=== PATIENT | female | born 1965 | race American Indian/Alaskan Native ===

== ENCOUNTER 2018-06-09 15:28 | Emergency (ER) | payer MEDICAID ==
[2018-06-09 16:15] VITALS: BP 144/70
[2018-06-09] MEDS ORDERED: NACL 0.9% 1000 ML 1,000 ML IV ONE (16:37)
[2018-06-09] MEDS ORDERED: ZOFRAN IV ONE (16:37)
--- NOTE | 2018-06-09 16:38 | Emergency Department Report ---
ED N/V/D HPI - General Chief complaint: Weakness Stated complaint: DONT FEEL GOOD Time Seen by Provider: 06/09/18 16:11 Source: patient Mode of arrival: Wheelchair Limitations: No Limitations - History of Present Illness Initial comments: 52-year-old female presents to the ED with complaints of weakness secondary to nausea, vomiting, diarrhea since last night. Patient denies abdominal pain. Reports subjective fever and chills. Patient denies sick contacts. Denies chest pain. Patient states she was seen at [facility] for same complaint one month ago. States she was diagnosed with "yeast in my stomach." Patient also reports rash possibly due to bed bugs from hotel room that she is currently staying in. Also reports right hip and knee pain which is chronic in nature due to fall several months ago. PCP: Bebeto MENCHACA complaint: nausea, vomiting, diarrhea -: Last night Description of Vomiting: food contents Description of Diarrhea: water Associated Abdominal Pain: No Severity: moderate Consistency: intermittent Improves with: none Worsens with: eating Associated Symptoms: nausea/vomiting, rash, weakness. denies: chest pain, cough , headaches - Related Data Previous Rx's Medication Instructions Recorded Last Taken Type Nitrofurantoin Monohyd/M-Cryst 100 mg PO BID #14 capsule 06/09/18 Unknown Rx [Macrobid 100 mg Capsule] Promethazine [Phenergan TAB] 25 mg PO Q6HR PRN #20 tab 06/09/18 Unknown Rx Promethazine [Phenergan TAB] 25 mg PO Q6HR PRN #20 tab 06/09/18 Unknown Rx Allergies Allergy/AdvReac Type Severity Reaction Status Date / Time Penicillins Allergy Hives Verified 06/09/18 15:35 ED Review of Systems ROS: Stated complaint: DONT FEEL GOOD Other details as noted in HPI Comment: All other systems reviewed and negative Constitutional: chills, fever, weakness Cardiovascular: denies: chest pain Gastrointestinal: nausea, vomiting, diarrhea. denies: abdominal pain Skin: rash Neurological: denies: headache ED Past Medical Hx - Past Medical History Previous Medical History?: Yes Hx Hypertension: Yes Hx Heart Attack/AMI: Yes Hx Congestive Heart Failure: Yes Hx Asthma: Yes Hx HIV: Yes - Surgical History Additional Surgical History: Cataract - Social History Smoking Status: Never Smoker Substance Use Type: Alcohol - Medications Home Medications: Home Medications Medication Instructions Recorded Confirmed Last Taken Type Nitrofurantoin Monohyd/M-Cryst 100 mg PO BID #14 capsule 06/09/18 Unknown Rx [Macrobid 100 mg Capsule] Promethazine [Phenergan TAB] 25 mg PO Q6HR PRN #20 tab 06/09/18 Unknown Rx Promethazine [Phenergan TAB] 25 mg PO Q6HR PRN #20 tab 06/09/18 Unknown Rx ED Physical Exam - General Limitations: No Limitations General appearance: alert, in no apparent distress, obese - Head Head exam: Present: atraumatic, normocephalic - Eye Eye exam: Present: normal appearance - Neck Neck exam: Present: normal inspection, full ROM - Respiratory Respiratory exam: Present: normal lung sounds bilaterally. Absent: respiratory distress - Cardiovascular Cardiovascular Exam: Present: regular rate, normal rhythm - GI/Abdominal GI/Abdominal exam: Present: soft. Absent: tenderness - Extremities Exam Extremities exam: Present: normal inspection. Absent: tenderness, joint swelling - Neurological Exam Neurological exam: Present: alert, oriented X3 - Psychiatric Psychiatric exam: Present: normal affect, normal mood - Skin Skin exam: Present: rash (dry macular rash to face) ED Course Vital Signs 06/09/18 06/09/18 06/09/18 15:35 16:08 16:16 Temperature 98.7 F 98.8 F Pulse Rate 104 H 107 H Respiratory 16 18 18 Rate Blood Pressure 155/74 Blood Pressure 144/70 [Right] O2 Sat by Pulse 99 95 95 Oximetry ED Medical Decision Making - Lab Data Result diagrams: 06/09/18 17:30 06/09/18 17:30 - Medical Decision Making 52-year-old female with complaints of nausea vomiting diarrhea weakness. Labs show UTI on UA. Remainder of labs unremarkable. Vital signs are normal. We will discharge with prescription for antibiotics and Phenergan. - Differential Diagnosis gastroenteritis, UTI, gastritis, bowel obstruction Critical care attestation.: If time is entered above; I have spent that time in minutes in the direct care of this critically ill patient, excluding procedure time. ED Disposition Clinical Impression: UTI (urinary tract infection) Disposition: - TO HOME OR SELFCARE Is pt being admited?: No Condition: Stable Instructions: Urinary Tract Infection in Women (ED) Additional Instructions: Follow up with your primary care physician in 3-5 days. Prescriptions: Nitrofurantoin Monohyd/M-Cryst [Macrobid 100 mg Capsule] 100 mg PO BID #14 capsule Promethazine [Phenergan TAB] 25 mg PO Q6HR PRN #20 tab PRN Reason: Nausea Promethazine [Phenergan TAB] 25 mg PO Q6HR PRN #20 tab PRN Reason: Nausea Time of Disposition: 18:47
[2018-06-09 17:39] LABS: Basophils # (Auto) 0.1 K/mm3 (0.0-0.1); Basophils % (Auto) 1.3 % (0.0-1.8); Eosinophils # (Auto) 0.1 K/mm3 (0.0-0.4); Eosinophils % (Auto) 1.7 % (0.0-4.3); Hematocrit 39.6 % (30.3-42.9); Hemoglobin 13.1 gm/dl (10.1-14.3); Lymphocytes # (Auto) 3.1 K/mm3 (1.2-5.4); Mean Corpuscular HGB Conc 33 % (30-34); Mean Corpuscular Hemoglobin 29 pg (28-32); Mean Corpuscular Volume 88 fl (79-97); Monocytes # (Auto) 0.9 K/mm3 (0.0-0.8); Platelet Count 224 K/mm3 (140-440); Red Blood Count 4.48 M/mm3 (3.65-5.03); Red Cell Distribution Width 16.6 % (13.2-15.2)
[2018-06-09 17:44] LABS: Bacteria,Urine 4+ /HPF (Negative); Bilirubin,Urine NEG (Negative); Blood,Urine SM (Negative); Color,Urine Yellow (Yellow); Mucus,Urine FEW /HPF; Protein,Urine <15 mg/dL mg/dL (Negative); Urobilinogen,Urine < 2.0 mg/dL (<2.0)
[2018-06-09 17:50] LABS: Albumin 3.8 g/dL (3.9-5); BUN/Creatinine Ratio 21; Blood Urea Nitrogen 15 mg/dL (7-17); Hemolysis Index 104; Lipase 46 units/L (13-60)
[2018-06-09 18:01] LABS: Bilirubin,Direct < 0.2 mg/dL (0-0.2)
[2018-06-09 18:28] LABS: Alanine Aminotransferase 54 units/L (7-56)
== END 2018-06-09 19:32 | disposition home or self-care (01) ==
LOC: ED 15:28
DX: N39.0 Urinary tract infection, site not specified (principal); I25.2 Old myocardial infarction; I11.0 Hypertensive heart disease with heart failure; I50.9 Heart failure, unspecified; J45.909 Unspecified asthma, uncomplicated; Z88.0 Allergy status to penicillin; R21 Rash and other nonspecific skin eruption; M25.561 Pain in right knee; M25.551 Pain in right hip; G89.29 Other chronic pain
CPT/HCPCS: 36415; 80048; 80074; 81001; 83690; 85025; 96361; 96374; 99284; J2405; J7030